=== PATIENT | female | born 1990 | race Two or more races ===

== ENCOUNTER 2025-02-22 21:41 | Emergency (ER) | payer OTHER ==
[~2025-02-22] VITALS: Ht 172.7 cm; Wt 81.6 kg
== END 2025-02-22 23:30 | disposition home or self-care (01) ==
LOC: ER 21:41
DX: T78.1XXA Other adverse food reactions, not elsewhere classified, initial encounter (principal); Z91.018 Allergy to other foods; X58.XXXA Exposure to other specified factors, initial encounter